=== PATIENT | male | born 1970 | race Caucasian/White ===

== ENCOUNTER → 2020-07-01 | Outpatient (CLI) | payer BC ==
[2016-06-09 13:35] VITALS: BP 114/64
[~2020-07-01] MED LIST: OXYC1TAB19 PO
--- NOTE | 2020-07-01 15:15 | KCIC ---
STUDY: MRI of the left knee without contrast INDICATION: Left knee pain. COMPARISON: Left knee radiographs 05/14/2020 TECHNIQUE: Multiplanar MR imaging of the left knee performed without the use of intravenous or intra-articular contrast. FINDINGS: Menisci: As best appreciated on the sagittal T2 sequence, heterogeneous signal of the medial meniscus at the posterior horn/root junction and posterior root , images 15 and 16 series 6. No full-thickness tear is seen at this location on the axial or coronal sequences and the meniscus is not extruded from the joint line though a partial tear remains possible. The lateral meniscus is intact. Cruciate ligaments: Intact. Collateral ligaments: Intact. Tendons: Intact. Cartilage: Patellofemoral: Partial thickness patellar chondrosis best seen at and adjacent to the median ridge such as on image 10 series 3. 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 Lateral compartment: Partial thickness chondral loss at the posteromedial tibial plateau beneath the lateral meniscus posterior horn, images 9 and 10 series 6. Medial compartment: Intact. Bones: No acute fracture or marrow contusion. Miscellaneous: Very small knee joint effusion. Mild subcutaneous edema superficial to the patella and patellar tendon without bursal distention with fluid. IMPRESSION: 1. Heterogeneous signal at the medial meniscus posterior horn/root junction and posterior root only well appreciated on the sagittal sequences. This could be artifactual but a partial meniscal tear is possible. No associated meniscal extrusion to suggest a full-thickness tear. The lateral meniscus is intact as are the cruciate and collateral ligaments. 2. 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 Partial thickness patellar chondrosis and at the posteromedial margin of the lateral tibial plateau. 3. Very small knee joint effusion. Electronically signed by: DAYANNA SARGENT MD (07/01/2020 3:12 PM) [id number]
== END ==
LOC: KCIC MRI 12:36
PROVIDERS: ATTEND Physician Assistant
DX: M25.462 Effusion, left knee (principal)
CPT/HCPCS: 73721